=== PATIENT | male | born 1960 | race Caucasian/White ===

== ENCOUNTER → 2016-12-04 | Outpatient (CLI) | payer OTHER ==
[~2016-12-04] MED LIST: CELEXA PO; CITALOPRAM HBR40 MG PO; FLONASE 0.05% N16 G1; GABAPENTIN300 M2 PO; HYDROCODONE/APA1 T16 PO; IBUPROFEN800 MG PO; OMEPRAZOLE40 M1 PO; PERCOCET5/325 PO; VOLTAREN50 MG PO
--- NOTE | ~2016-12-04 | EKG ---
PATIENT: JANAE TRAN UNIT #: [id number] Ventricular Rate: 87 BPM Atrial Rate: 87 BPM P-R Interval: 156 ms QRS Duration: 104 ms Q-T Interval: 386 ms QTC Calculation(Bezet): 464 ms P Ralston: 41 degrees Calculated R Ralston: -2 degrees Calculated T Ralston: 41 degrees Diagnosis Line: Sinus rhythm with occasional Premature ventricular Diagnosis Line: complexes Diagnosis Line: Otherwise normal ECG Diagnosis Line: No previous ECGs available Diagnosis Line: Confirmed by MARYJANE SIMON MD ([id number]) on 12/05/2016 Diagnosis Line: 4:27:13 PM INTERPRETING MD: ALFRED PELLETIER
--- NOTE | ~2016-12-04 | CR63 ---
[facility] A Service of [facility] & [facility] RADIOLOGY TEXT RESULTS PATIENT: JANAE TARN LOCATION: [facility] : 60 UNIT #: [id number] AGE: [address]: Heber Hyde MD SEX: M ORDER DR: [id number] [facility] [address] [place], [place] [address] [id number] O MR#: [id number] Acc #: [id number] NAME: JANAE TRAN : 1960 SEX: M STUDY DATE/TIME: 12/04/2016 12:19 UNIT: [facility] ROOM: STUDY DESCRIPTION: CR Chest 2 View Attending Physician: Heber Hyde M.D. Referring Physician: Heber Hyde M.D. Ordering Physician: Heber Hyde M.D. Primary Care Physician: Garfield Gregory M.D. MEDICAL IMAGING REPORT This report is preliminary unless electronic signature is present EXAM Chest x-ray HISTORY Preop for knee surgery. Chronic hypertension. Occasional shortness of breath over the past month. TECHNIQUE 2 views of the chest were obtained. FINDINGS Heart size is within normal limits. The aorta is tortuous and ectatic. Both lungs are fully expanded and clear. There is mild pleural thickening at the right costophrenic angle. No pleural fluid is seen. IMPRESSION Mild pleural thickening at the right costophrenic angle probably chronic. No active disease Dictated by... Kev Murcia M.D. THIS IS AN ELECTRONICALLY VERIFIED REPORT Kev Murcia M.D. at 12/04/2016 6:02 PM JESS/armond TD: 12/04/2016 14:14 JOB #: [id number] MEDICAL IMAGING REPORT Page 1 of 1 COPY
[2016-12-04 11:16] LABS: HEMATOCRIT 45.6 % (38.0-50.0); HEMOGLOBIN 14.6 gm/dL (13.0-16.0); MEAN CELL VOLUME 86.6 FL (83-96); MEAN CORPUSCULAR HEMOGLOBIN 27.7 PG (28-34); MEAN PLATELET VOLUME 8.6 FL (6.5-11.5); RED BLOOD COUNT 5.27 X10e (3.90-5.60); RED CELL DISTRIBUTION WIDTH 14.9 % (11.0-15.5); WHITE BLOOD COUNT 8.5 X10e3 (4.0-10.5)
[2016-12-04 11:20] LABS: URINE APPEARANCE CLEAR; URINE BILIRUBIN NEG (NEG); URINE BLOOD NEG (NEG); URINE COLOR YELLOW; URINE GLUCOSE NEG (NEG); URINE KETONE NEG (NEG); URINE LEUKOCYTE ESTERASE NEG (NEG); URINE NITRATE NEG (NEG); URINE PROTEIN NEG (NEG); URINE SPECIFIC GRAVITY 1.013 (1.003-1.035); URINE UROBILINOGEN 0.2 MG/DL (NEG)
[2016-12-04 11:29] LABS: URINE SOURCE CLEAN CATCH
[2016-12-04 11:30] LABS: CULTURE INDICATED? NO
[2016-12-04 12:09] LABS: CALCIUM SERUM 9.7 mg/dL (8.4-10.2); CREATININE SERUM 0.8 mg/dL (0.6-1.4); GLOM FILT RATE Estimated 100.6 mL/min (>60)
== END | disposition home or self-care (01) ==
LOC: CAMB 10:43
PROVIDERS: Orthopaedic Surgery
DX: Z01.818 Encounter for other preprocedural examination (principal); S83.241A Other tear of medial meniscus, current injury, right knee, initial encounter; S83.281A Other tear of lateral meniscus, current injury, right knee, initial encounter; I10 Essential (primary) hypertension
CPT/HCPCS: 36415; 71020; 80048; 81003; 85027; 93005

== ENCOUNTER → 2016-12-15 | Day surgery (SDC) | payer OTHER ==
--- NOTE | ~2016-12-15 | OR ---
Unit #: [id number] #: [id number] Patient: JANAE TRAN [id number] [address] [place], [place] [address] [id number] O MR#: [id number] NAME: JANAE TRAN ROOM: Date of Procedure: 12/15/2016 Admission Date: 12/15/2016 Surgeon: Heber Hyde M.D. : 1960 Attending Physician: Heber Hyde M.D. Primary Care Physician: Garfield Gregory M.D. OPERATIVE REPORT PREOPERATIVE DIAGNOSIS Medial and lateral meniscal tears. POSTOPERATIVE DIAGNOSES Medial and lateral meniscal tears with severe degenerative arthritis, lateral compartment. PROCEDURE PERFORMED Arthroscopic partial medial and lateral meniscectomies. DESCRIPTION OF PROCEDURE The patient was brought to the operating room, given a general anesthetic. Tourniquet placed around the right thigh. It was exsanguinated. Tourniquet inflated to 300 and placed in a leg arroyo. Right leg was prepped and draped. The arthroscope was introduced through the inferolateral portal. The knee was inspected. The suprapatellar pouch was free of debris. The medial and lateral gutters were free of debris. The medial compartment was entered. There was a tear in the posterior horn of the medial meniscus. This was resected using a straight and curved basket and a 3.5 incisor blade. The lateral compartment was inspected. There were degenerative tears of the lateral meniscus. These were removed with a shaver, but there was exposed bone on the large portion of the tibial plateau and the femoral condyle. We then removed all the fluid from the knee. A 15 mL of 0.5% plain Marcaine was injected into the knee and then the wound was closed. The dressing was applied to the 2 portals. Tourniquet released and then the a sterile compression dressing was applied and general anesthetic reversed. Dictated by... Cheryl Sung/sunita TD: 12/16/2016 02:52 JOB #: [id number] Unit #: [id number] #: [id number] Patient: JANAE TRAN OPERATIVE REPORT Page 1 of 1 X Heber Hyde MD PROCEDURE OPERATIVE NOTE
== END | disposition home or self-care (01) ==
LOC: CSUR 07:01
PROVIDERS: Orthopaedic Surgery
PROC: 0SBC4ZZ Excision of Right Knee Joint, Percutaneous Endoscopic Approach (ICD-10-PCS; 2016-12-15)
PROC: 0SBC4ZZ Excision of Right Knee Joint, Percutaneous Endoscopic Approach (ICD-10-PCS; principal; 2016-12-15 09:00)
DX: S83.241A Other tear of medial meniscus, current injury, right knee, initial encounter (principal); S83.281A Other tear of lateral meniscus, current injury, right knee, initial encounter; M17.11 Unilateral primary osteoarthritis, right knee; I10 Essential (primary) hypertension; K21.9 Gastro-esophageal reflux disease without esophagitis; F17.200 Nicotine dependence, unspecified, uncomplicated; J30.2 Other seasonal allergic rhinitis; Z79.899 Other long term (current) drug therapy; Z79.891 Long term (current) use of opiate analgesic; Z98.890 Other specified postprocedural states
CPT/HCPCS: J1885; J2405; J3010

== ENCOUNTER → 2017-04-13 | Outpatient (CLI) | payer OTHER ==
[2017-04-13 10:00] LABS: HEMATOCRIT 43.4 % (38.0-50.0); HEMOGLOBIN 14.5 gm/dL (13.0-16.0); MEAN CELL VOLUME 86.4 FL (83-96); MEAN CORPUSCULAR HEMOGLOBIN 28.9 PG (28-34); MEAN CORPUSCULAR HGB CONC 33.5 g/dL (30-36); MEAN PLATELET VOLUME 8.5 FL (6.5-11.5); RED BLOOD COUNT 5.03 X10e (3.90-5.60); RED CELL DISTRIBUTION WIDTH 15.4 % (11.0-15.5)
[2017-04-13 10:01] LABS: URINE APPEARANCE CLEAR; URINE BILIRUBIN NEG (NEG); URINE BLOOD NEG (NEG); URINE COLOR YELLOW; URINE GLUCOSE NEG (NEG); URINE KETONE NEG (NEG); URINE LEUKOCYTE ESTERASE NEG (NEG); URINE NITRATE NEG (NEG); URINE PROTEIN NEG (NEG); URINE SPECIFIC GRAVITY 1.022 (1.003-1.035); URINE UROBILINOGEN 0.2 MG/DL (NEG)
[2017-04-13 10:08] LABS: CULTURE INDICATED? NO; URINE SOURCE CLEAN CATCH
[2017-04-13 10:30] LABS: BUN/CREATININE RATIO 16.25; CALCIUM SERUM 9.7 mg/dL (8.4-10.2); CREATININE SERUM 0.8 mg/dL (0.6-1.4); GLOM FILT RATE Estimated 99.9 mL/min (>60); POTASSIUM 3.7 mmol/L (3.5-5.1)
== END | disposition home or self-care (01) ==
LOC: CAMB 04-09 10:00
PROVIDERS: Orthopaedic Surgery
DX: Z01.812 Encounter for preprocedural laboratory examination (principal); S83.241A Other tear of medial meniscus, current injury, right knee, initial encounter
CPT/HCPCS: 36415; 80048; 81003; 85027

== ENCOUNTER → 2017-04-20 | Day surgery (SDC) | payer OTHER ==
--- NOTE | ~2017-04-20 | OR ---
Unit #: [id number] #: [id number] Patient: JANAE TRAN [id number] [address] [address] [id number] O MR#: [id number] NAME: JANAE TRAN. ROOM: Date of Procedure: 04/20/2017 Admission Date: 04/20/2017 Surgeon: Heber Hyde M.D. : 1960 Attending Physician: Heber Hyde M.D. Primary Care Physician: Garfield Gregory M.D. OPERATIVE REPORT PREOPERATIVE DIAGNOSIS Medial and lateral meniscal tear of the right knee. POSTOPERATIVE DIAGNOSIS Medial meniscal tear with degenerative arthritis at the lateral compartment of the right knee. ANESTHESIA General. ESTIMATED BLOOD LOSS Less than 25. DESCRIPTION OF PROCEDURE The patient was brought to the operating room, given a general anesthetic. Tourniquet was placed around the right thigh. The right leg was exsanguinated. Tourniquet was inflated to 300 and placed in a leg arroyo, and was prepped and draped. The arthroscope was introduced through the inferolateral portal. The knee was visualized. Suprapatellar pouch was free of debris. There was some chondromalacia in the patella, but no full-thickness loss. The medial compartment was entered and there was a tear in the posterior horn of the medial meniscus and the root. This was debrided and the rest of the meniscus was found to be stable. We then inspected the lateral compartment and there was [id number] in the lateral compartment. There was a very small meniscal tear which was debrided, but he was [id number] on the femur and the tibia. All the fluid was removed from the knee. The joint was injected with 15 mL of 0.5% plain Marcaine. Sterile dressing was applied and the patient's tourniquet released and general anesthetic reversed. Dictated by... Cheryl Sung/sunita TD: 04/22/2017 12:03 JOB #: [id number] Unit #: [id number] #: [id number] Patient: JANAE TRAN OPERATIVE REPORT Page 1 of 1 X Heber Hyde MD PROCEDURE OPERATIVE NOTE
== END | disposition home or self-care (01) ==
LOC: CSUR 05:29
DX: M23.321 Other meniscus derangements, posterior horn of medial meniscus, right knee (principal); M23.300 Other meniscus derangements, unspecified lateral meniscus, right knee; I10 Essential (primary) hypertension; M17.11 Unilateral primary osteoarthritis, right knee; G89.29 Other chronic pain; F17.210 Nicotine dependence, cigarettes, uncomplicated; Z88.5 Allergy status to narcotic agent; Z79.891 Long term (current) use of opiate analgesic; Z79.899 Other long term (current) drug therapy
CPT/HCPCS: J2250; J2405; J3010